=== PATIENT | male | born 1970 | race Caucasian/White ===

== ENCOUNTER → 2020-06-27 09:23 | Outpatient (BNVA) | payer OTHER, SELFPAY | PROVIDERS: Visit Provider Internal Medicine | DX: S39.012A Strain of muscle, fascia and tendon of lower back, initial encounter (principal); X50.0XXA Overexertion from strenuous movement or load, initial encounter | CPT/HCPCS: 99202 ==

== ENCOUNTER → 2020-07-11 15:23 | Outpatient (BNVA) | payer OTHER, SELFPAY | PROVIDERS: Visit Provider Internal Medicine | DX: S39.012D Strain of muscle, fascia and tendon of lower back, subsequent encounter (principal); X50.0XXD Overexertion from strenuous movement or load, subsequent encounter | CPT/HCPCS: 99213 ==